=== PATIENT | female | born 1970 | race Caucasian/White ===

== ENCOUNTER 2025-03-28 01:37 | Emergency (ER) | payer OTHER ==
[2025-03-28 02:07] LABS: BASOPHILS ABSOLUTE AUTO 0.04 K/uL (0.00-0.20); BASOPHILS PERCENT AUTO 0.5 % (0.0-1.0); EOSINOPHILS ABSOLUTE AUTO 0.04 K/uL (0.00-0.45); EOSINOPHILS PERCENT AUTO 0.5 % (0.0-6.0); HEMATOCRIT 42.1 % (37.0-47.0); HEMOGLOBIN 13.9 g/dL (12.0-16.0); IMMATURE GRAN ABSOLUTE AUTO 0.05 K/uL (0.00-0.05); IMMATURE GRAN PERCENT AUTO 0.6 % (0.0-0.4); LYMPHOCYTES ABSOLUTE AUTO 1.36 K/uL (1.00-4.80); LYMPHOCYTES PERCENT AUTO 16.9 % (24.0-44.0); MEAN CORPUSCULAR HEMOGLOBIN 28.8 pg (28.0-32.0); MEAN CORPUSCULAR VOLUME 87.3 fL (83.0-99.0); MEAN PLATELET VOLUME 9.9 fL (9.4-12.3); MONOCYTES ABSOLUTE AUTO 0.32 K/uL (0.00-0.80); NEUTROPHILS ABSOLUTE AUTO 6.24 K/uL (1.80-7.70); NEUTROPHILS PERCENT AUTO 77.5 % (41.0-71.0); PLATELET COUNT,PLT 197 K/uL (150-400); RED BLOOD CELL COUNT 4.82 M/uL (4.10-5.30); WHITE BLOOD CELL COUNT,WBC 8.05 K/uL (3.9-11.3)
[2025-03-28] MEDS ORDERED: Ketorolac 30 MG/ML SDV IVPUSH ONE (02:21)
[2025-03-28] MEDS: Morphine 2 MG/ML SYRINGE IVPUSH ONE (02:25)
[2025-03-28] MEDS: Acetaminophen 500 MG Tab PO ONE (02:25)
[2025-03-28] MEDS: Ondansetron 4 MG/2 ML SDV IVPUSH ONE (02:29)
[2025-03-28 02:36] LABS: A/G RATIO 1.4 (0.9-1.6); ALBUMIN 3.8 g/dL (3.4-5.0); BILIRUBIN TOTAL 0.4 mg/dL (0.2-1.0); CALCIUM 8.5 mg/dL (8.5-10.1); CARBON DIOXIDE,CO2 27.3 mmol/L (21.0-32.0); CREATININE 1.1 mg/dL (0.6-1.0); POTASSIUM,K 3.4 mmol/L (3.5-5.1); PROTEIN TOTAL,TP 6.6 g/dL (6.4-8.2)
[2025-03-28] MEDS: Ketorolac 30 MG/ML SDV IVPUSH ONE (03:06)
== END 2025-03-28 04:30 | disposition home or self-care (01) ==
LOC: MW.ED 01:37
DX: S06.9X9A Unspecified intracranial injury with loss of consciousness of unspecified duration, initial encounter (principal); S80.01XA Contusion of right knee, initial encounter; S29.8XXA Other specified injuries of thorax, initial encounter; F10.920 Alcohol use, unspecified with intoxication, uncomplicated; M25.531 Pain in right wrist; M25.511 Pain in right shoulder; V89.2XXA Person injured in unspecified motor-vehicle accident, traffic, initial encounter; Y90.6 Blood alcohol level of 120-199 mg/100 ml
CPT/HCPCS: 36415; 70450; 71045; 72125; 72128; 73030; 73110; 73130; 73562; 73590; 80053; 80307; 82947; 83690; 85025; 85610; 96374; 96375; 99285; A9270; J1885; J2270; J2405; 99284